=== PATIENT | female | born 1955 ===

== ENCOUNTER → 2024-06-11 10:48 | Outpatient (BNVA) | payer MEDICARE, SELFPAY | PROVIDERS: Visit Provider Specialist | DX: G31.83 Neurocognitive disorder with Lewy bodies; F02.C11 Dementia in other diseases classified elsewhere, severe, with agitation; T42.8X5A Adverse effect of antiparkinsonism drugs and other central muscle-tone depressants, initial encounter | CPT/HCPCS: 99204; 99205 ==

== ENCOUNTER → 2024-07-20 13:43 | Outpatient (BNVA) | payer MEDICARE, SELFPAY | PROVIDERS: Referring Provider Family Medicine; Visit Provider Specialist | DX: Z09 Encounter for follow-up examination after completed treatment for conditions other than malignant neoplasm (principal); G30.1 Alzheimer's disease with late onset; F02.C2 Dementia in other diseases classified elsewhere, severe, with psychotic disturbance; G31.83 Neurocognitive disorder with Lewy bodies; F02.C11 Dementia in other diseases classified elsewhere, severe, with agitation | CPT/HCPCS: 99214; 99215 ==

== ENCOUNTER → 2024-09-15 11:50 | Outpatient (BNVA) | payer MEDICARE, SELFPAY | PROVIDERS: PCP Family Medicine; Visit Provider Specialist | DX: Z09 Encounter for follow-up examination after completed treatment for conditions other than malignant neoplasm (principal); G30.1 Alzheimer's disease with late onset; F02.C2 Dementia in other diseases classified elsewhere, severe, with psychotic disturbance; G31.83 Neurocognitive disorder with Lewy bodies; F02.C11 Dementia in other diseases classified elsewhere, severe, with agitation | CPT/HCPCS: 99214 ==